=== PATIENT | male | born 1995 | race American Indian/Alaskan Native ===

== ENCOUNTER 2018-05-18 16:50 | Emergency (ER) | payer BC ==
[2018-05-18] MEDS ORDERED: MOTRIN PO ONE (17:55)
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
[2018-05-18 20:37] VITALS: BP 126/72
== END 2018-05-18 20:35 | disposition home or self-care (01) ==
LOC: ED 16:50
DX: S00.83XA Contusion of other part of head, initial encounter (principal); S80.212A Abrasion, left knee, initial encounter; F17.200 Nicotine dependence, unspecified, uncomplicated; Y04.8XXA Assault by other bodily force, initial encounter; Y93.89 Activity, other specified; Y92.89 Other specified places as the place of occurrence of the external cause; Y99.8 Other external cause status
CPT/HCPCS: 70486; 72125; 99284